=== PATIENT | male | born 1970 | race Caucasian/White ===

== ENCOUNTER 2017-12-15 14:31 | Emergency (ER) | payer SELFPAY ==
[2017-12-15 14:34] VITALS: BP 132/82; PULSE 55; RESP 16; TEMP 98.9; O2SAT 98
--- NOTE | 2017-12-15 15:08 | RADRPT ---
EXAM DATE/TIME: 12/15/2017 14:57 [place] COMPARISON: No previous studies available for comparison. INDICATIONS : Left lower leg pain, no known trauma MEDICAL HISTORY : None. SURGICAL HISTORY : None. ENCOUNTER: Initial ACUITY: 2 days PAIN SCORE: 7/10 LOCATION: Left tib fib FINDINGS: Two view examination of the left tibia demonstrates no evidence of fracture or dislocation. Bony min eralization is normal. The soft tissue structures are intact. CONCLUSION: Negative exam. Eliud Rivera MD on December 15, 2017 at 15:06 Board Certified Radiologist. This report was verified electronically.
--- NOTE | 2017-12-15 15:32 | PD ---
HPI Chief Complaint: Musculoskeletal Complaint Time Seen by Provider: 15:24 Travel History International Travel<30 days: No Contact w/Intl Traveler<30days: No Traveled to known affect area: No History of Present Illness HPI 47-year-old male presents for evaluation of left lower leg pain. He reports that he is homeless, walks 10-15 miles per day. Over the past few days he has been having pain to the left lower tibial region. Pain is an aching pain which is worse when walking or when he is flexing at the ankle. Denies any injuries. Denies any swelling. No other complaints. [facility] Social History Alcohol Use: Yes Tobacco Use: Yes Allergies-Medications (Allergen,Severity, Reaction): Coded Allergies: milk (Verified Allergy, Unknown, 12/15/17) Review of Systems General / Constitutional: No: Fever, Chills Musculoskeletal: Positive: Pain Physical Exam Narrative GENERAL: Well-nourished male in no acute distress SKIN: Warm and dry. HEAD: Atraumatic. Normocephalic. EYES: Pupils equal and round. No scleral icterus. No injection or drainage. ENT: No nasal bleeding or discharge. Mucous membranes pink and moist. NECK: Trachea midline. No JVD. CARDIOVASCULAR: Regular rate and rhythm. No murmur appreciated. RESPIRATORY: No accessory muscle use. Clear to auscultation. Breath sounds equal bilaterally. MUSCULOSKELETAL: No obvious deformities. Tenderness to palpation along the lateral border of the left lower tibia. There is no lower extremity edema. Achilles tendon is intact and nontender. 2+ dorsalis pedis pulse bilaterally. NEUROLOGICAL: Awake and alert. No obvious cranial nerve deficits. Motor grossly within normal limits. Normal speech. Data Data Last Documented VS Vital Signs Date Time Temp Pulse Resp B/P (MAP) Pulse Ox O2 Delivery O2 Flow Rate FiO2 12/15/17 14:34 98.9 55 16 132/82 (99) 98 Orders Orders Tibia/Fibula (Ap/Lat) (12/15/17 ) [facility] Medical Decision Making Medical Screen Exam Complete: Yes Emergency Medical Condition: Yes Medical Record Reviewed: Yes Differential Diagnosis Lateral tibial stress syndrome versus tibial stress fracture versus muscle strain versus DVT Narrative Course X-ray imaging is obtained in triage and is unremarkable. His examination is wholly consistent with herman splints from overuse. Recommended rest, ice several times a day 20 minutes at a time, gentle stretching activities. He is stable for discharge. Diagnosis Primary Impression: Herman splints Additional Instructions: Decreased the amount that her walking. Avoid activities that increase your pain. Ice pack several times a day 20 minutes at a time. Follow-up with primary care physician as needed. Return for any emergent medical conditions. Med/Other Pt SpecificInfo: No Change to Meds Disposition: 01 DISCHARGE HOME Condition: Stable Wilmer Hernandez Dec 15, 2017 15:32
== END 2017-12-15 15:45 | disposition home or self-care (01) ==
LOC: NEPK 14:31
DX: S86.892A Other injury of other muscle(s) and tendon(s) at lower leg level, left leg, initial encounter (principal); Y93.01 Activity, walking, marching and hiking; Z59.0 Homelessness; Z72.0 Tobacco use
CPT/HCPCS: 73590; 99283